=== PATIENT | female | born 1965 | race Caucasian/White ===

== ENCOUNTER → 2016-09-26 | Outpatient (CLI) | payer OTHER ==
--- NOTE | 2016-09-26 15:08 | DX ---
DEXA Bone Mineral Densitometry Screening Clinical Indications: Followup low bone mineral density. On the questionnaire, the patient reports l eft total hip replacement. The patient takes supplemental vitamin D of 1000 units per day. The patien t exercises by walking and swimming. Comparison: May 31, 2014 Technique: Bone Mineral Densitometry (BMD) by Dual Energy X-Ray Absorptiometry (DEXA) was performed utilizing the [employer] scanner. The lumbar spine was evaluated in the AP projection. The right hip and right forearm were evaluated in the AP projection. Vertebral fracture assessment was also pe rformed. AP Lumbar Spine: The L1, L2, L3 and L4 vertebral bodies are evaluated. BMD: 0.988 gm/cm2 T-score: -1.7 SD Z-score: -1.0 SD Since the previous study, there has been mild decrease in bone mineral density by 6.4%. AP Right Hip: BMD: 0.817 gm/cm2 T-score: -1.5 SD Z-score: -0.9 SD Since the previous study, there has been no significant change. AP right Forearm: BMD: 1.009 gm/cm2 T-score: 1.5 SD Z-score: 1.7 SD Since the previous study, there has been no significant change. Vertebral Fracture Assessment: No significant fracture deformity. The ten year risk for any major osteoporotic fracture is 4.3% and for a hip fracture is 0.3%. Conclusion: Considering the lowest measured site, the patient has low bone mineral density. There has been a mild decrease in the bone mineral density of the lumbar spine with stable values of the right hip and right forearm. Any bone loss in this patient is probably related to aging or estrogen deficiency. Recommendations: 1. Pursue a regular regimen of weight bearing and muscle strengthening exercises. 2. Insure that total daily calcium intake is at least 1500 mg (DIET more important than supplements). 3. Check serum hydroxy vitamin D3 (normal >30ng/ml). 4. Insure daily intake of vitamin D is at least 800-1000 international units. 5. Consider follow-up DEXA scan in 3 - 5 years to assess the rate of bone loss in this patient.
== END ==
LOC: FIMAGING 11:11
PROVIDERS: ATTEND Internal Medicine
DX: Z13.820 Encounter for screening for osteoporosis (principal); M85.80 Other specified disorders of bone density and structure, unspecified site

== ENCOUNTER → 2017-08-12 | Outpatient (CLI) | payer OTHER | LOC: BMCIMAGING 09:00 | PROVIDERS: ATTEND Internal Medicine | DX: Z12.31 Encounter for screening mammogram for malignant neoplasm of breast (principal) | CPT/HCPCS: G0202 ==

== ENCOUNTER → 2018-09-10 | Outpatient (CLI) | payer OTHER | END | disposition home or self-care (01) | LOC: FIMAGING 08:37 | PROVIDERS: ATTEND Internal Medicine | DX: Z12.31 Encounter for screening mammogram for malignant neoplasm of breast (principal); N64.9 Disorder of breast, unspecified ==

== ENCOUNTER → 2018-10-01 | Outpatient (CLI) | payer OTHER | END | disposition home or self-care (01) | LOC: FIMAGING 12:07 | PROVIDERS: ATTEND Internal Medicine | DX: R92.8 Other abnormal and inconclusive findings on diagnostic imaging of breast (principal) ==